=== PATIENT | female | born 2000 | race Caucasian/White ===

== ENCOUNTER 2019-03-05 06:16 | Day surgery (SDC) | payer OTHER ==
[~2019-03-05] VITALS: Ht 162.6 cm; Wt 85.1 kg
[2019-03-05] VITALS (34 sets, daily range): BP systolic 101–138; BP diastolic 59–81; PULSE 54–98; RESP 12–27; Ht 162.6 cm; Wt 85.1 kg
[~2019-03-05 06:16] MED LIST: CEFAZOLIN 2 GM/50 ML (PMX) 50 ML IVPB ONE; SOD CHLORIDE 0.9% 1,000 ML IV SCH
--- NOTE | 2019-03-05 08:53 | PREAC ---
Date/Time of Note Date/Time of Note DATE: 03/05/19 TIME: 08:51 Anesthesia Eval and Record Evaluation Time Pre-Procedure Interview DATE: 03/05/19 TIME: 08:51 Age 18 Sex female NPO: 8 hrs Preoperative diagnosis cholelithiasis Planned procedure lap brenda Past Medical History Past Medical History: Includes GI: Obesity Surgery & Anesthesia Issues No known issue Meds Anticoagulation: No Beta Omar within 24 hr: No Reason Beta Omar not given: Pt. not on B-Omar No Active Prescriptions or Reported Meds Current Medications Sodium Chloride 1,000 ml @ 75 mls/hr [id number] IV Last administered on 03/05/19at 07:26; Admin Dose 75 MLS/HR; Start 03/05/19 at 06:00; Stop 03/05/19 at 23:00 Meds reviewed: Yes Allergies Coded Allergies: No Known Allergies (Verified Allergy, Unknown, 03/05/19) Allergies Reviewed: Yes Labs/Studies Labs Reviewed: Reviewed by anesthesiologist test: Negative Studies: ECG (n/a), CXR (n/a) Pre-procedure Exam Last vitals Vital Signs Date Temp Pulse Resp B/P (MAP) Pulse Ox O2 O2 Flow FiO2 Time Delivery Rate 03/05/19 97.3 85 16 119/68 100 Room Air 07:35 (85) Airway: Adequate mouth opening Mallampati: Mallampati I Teeth: Normal Lung: Normal Heart: Normal ASA Physical Status ASA physical status: 1 Emergency: None Planned Anesthetic General/MAC: ETT Nerve block: TAP (bilateral) Planned Pain Management Single shot nerve block Pre-operative Attestations Prior to commencing anesthesia and surgery, the patient was re-evaluated, there was verification of: *The patient's identity *The results of appropriate recent lab work and preoperative vital signs *The above evaluation not changing prior to induction *Anesthetic plan, risk benefits, alternative and complications discussed with patient/family; questions answered; patient/family understands, accepts and wishes to proceed. SHIRLEY ROY MD Mar 05, 2019 08:53
[2019-03-05] MEDS ORDERED: BUPIVACAINE 0.25% (MPF) 30 ML INJ ONE (08:54)
[2019-03-05] MEDS ORDERED: ROCURONIUM 50 MG INJ ONE (08:57)
[2019-03-05] MEDS ORDERED: GLYCOPYRROLATE 0.4 MG INJ ONE (08:57)
[2019-03-05] MEDS ORDERED: KETOROLAC 30 MG INJ ONE (08:57)
[2019-03-05] MEDS ORDERED: ONDANSETRON 4 MG INJ ONE (08:57)
[2019-03-05] MEDS ORDERED: PROPOFOL 200 MG INJ ONE (08:57)
[2019-03-05] MEDS ORDERED: ROPIVACAINE 0.5 % 30 ML VIAL ONE (08:57)
[2019-03-05] MEDS ORDERED: METOCLOPRAMIDE 10 MG INJ ONE (08:57)
[2019-03-05] MEDS ORDERED: MIDAZOLAM 1 MG/ML 2 ML INJ ONE (08:57)
[2019-03-05] MEDS ORDERED: NEOSTIGMINE 3 MG/3 ML SYRINGE ONE (08:57)
[2019-03-05] MEDS ORDERED: MEPERIDINE 25 MG INJ IV PRN (09:00)
[2019-03-05] MEDS ORDERED: MIDAZOLAM 1 MG/ML 2 ML INJ IV PRN (09:00)
[2019-03-05] MEDS ORDERED: FENTAnyl 50 MCG/ML VIAL IV PRN ×3 (09:00)
[2019-03-05] MEDS ORDERED: HYDROmorphONE 1 MG/5 ML IV SYRINGE IV PRN ×2 (09:00)
[2019-03-05] MEDS ORDERED: DIPHENHYDRAMINE 50 MG INJ IV PRN (09:00)
[2019-03-05] MEDS ORDERED: KETOROLAC 30 MG INJ IV PRN (09:00)
[2019-03-05] MEDS ORDERED: ONDANSETRON 4 MG INJ IV PRN (09:00)
[2019-03-05] MEDS ORDERED: OXYCODONE/ACETAMINOPHEN (5/325) TAB PO PRN ×2 (09:00)
[2019-03-05] MEDS ORDERED: FENTAnyl 50 MCG/ML VIAL ONE (09:29)
--- NOTE | 2019-03-05 09:54 | OPR ---
Date/Time of Note Date/Time of Note DATE: 03/05/19 TIME: 09:51 Operative Report Procedure Date: Mar 05, 2019 Preoperative Diagnosis symptomatic gallstones Postoperative Diagnosis same Operation/Procedure Performed laparoscopic cholecystectomy Surgeon see signature line Blue Prints Trimmer none Anesthesia Type: general Estimated Blood Loss: 0 - 10 ml's Transfusion none Specimen gallbladder Grafts/Implants none Complications none Pt Condition Post Procedure: stable Indications This is a 18-year-old female with some tender gallstones. She required surgical excision of her gallbladder. Risks alternatives benefits and personally discussed the patient. Patient expressed understanding and consents to the operation. Procedure Description Patient is taken to the OR and prepped and draped in usual sterile fashion. Surgical time was performed. IV antibiotics given. Infraumbilical transverse incision was made with a 15 blade. Dissection with cautery skin onto the fascia. The fascia was grasped with Mavis's and divided with curved Heredia scissors. 0 Vicryl stitch was placed into the fascia. Thacker trocar was introduced. Pneumoperitoneum was established. Midepigastric 12 mm optical trochars placed under direct visualization. Right upper quadrant upper flank 5 motor optical trochars were placed under direct visualization. Upon initial inspection there is adhesions to the gallbladder which were taken down bluntly. The gallbladder was grasped the fundus. Gallbladder is hydropic and is tense. The gallbladder is retracted laterally and cephalad. [place] graspers used to dissect out the cystic duct and cystic artery. The critical view was established. The cystic duct is divided to close proximal clip distal and the division was performed laparoscopic scissors. Cystic artery was divided to close proximal to distal and the division is performed lap scopic scissors. The gallbladder was taken of the gallbladder bed. Good hemostasis status. The gallbladder is retrieved Endo Catch bag. Suction irrigation was used. All ports were removed under direct visualization. 0 Vicryl was tied down. Skin is closed and skin missael. A tap block was provided by the anesthesiologist at the beginning the case. Dry dressings were applied. Neelam GALVEZ Mar 05, 2019 09:54
[2019-03-05] MEDS ORDERED: HYDROCODONE/APAP (5/325) TAB PO ONE (10:00)
[2019-03-05] MEDS: HYDROmorphONE 1 MG/5 ML IV SYRINGE IV PRN ×2 (10:16→12:05)
[2019-03-05] MEDS ORDERED: KETOROLAC 30 MG INJ IV STA (11:10)
[2019-03-05] MEDS ORDERED: DIAZEPAM 5 MG/ML SYG IV ONE (11:30)
[2019-03-05] MEDS ORDERED: ACETAMINOPHEN 1000MG/100ML IV 100 ML ONE (13:35)
[2019-03-05] MEDS ORDERED: ACETAMINOPHEN 1000MG/100ML IV 100 ML IVPB ONE (14:00)
--- NOTE | 2019-03-05 18:09 | PAC ---
Date/Time of Note Date/Time of Note DATE: 03/05/19 TIME: 18:09 Post-Anesthesia Notes Post-Anesthesia Note Last documented vital signs Vital Signs Date Temp Pulse Resp B/P (MAP) Pulse Ox O2 O2 Flow FiO2 Time Delivery Rate 03/05/19 97.6 78 19 106/60 95 Room Air 15:59 (75) 03/05/19 4.0 15:35 Activity: WNL Respiratory function: WNL Cardiovascular function: WNL Mental status: Baseline Pain reasonably controlled: Yes Hydration appropriate: Yes Nausea/Vomiting absent: No SHIRLEY ROY MD Mar 05, 2019 18:09
== END 2019-03-05 16:15 | disposition home or self-care (01) ==
LOC: SDS 06:16
PROVIDERS: ATTEND Surgery
DX: K80.10 Calculus of gallbladder with chronic cholecystitis without obstruction (principal); E66.9 Obesity, unspecified
CPT/HCPCS: 84703; 88304; J0131; J1170; J1200; J1885; J2175; J2250; J2405; J2710; J2765; J2795; J3010; J3360